=== PATIENT | male | born 1980 | race Caucasian/White ===

== ENCOUNTER 2017-07-18 10:07 | Emergency (ER) | payer OTHER ==
[2017-07-18 10:16] VITALS: BP 115/64; PULSE 68; TEMP 97; O2SAT 99
[2017-07-18 10:17] VITALS: BMI 28.4
--- NOTE | 2017-07-18 11:32 | ED PDOC ---
HPI: Male Pain Time Seen by Provider: 07/18/17 10:46 Chief Complaint (Nursing): Male Genitourinary Chief Complaint (Provider): Groin pain History Per: Patient History/Exam Limitations: no limitations Onset/Duration Of Symptoms: Days (3) Additional Complaint(s): Pt reports burning in groin area X 3 days, associated with urinary hesitancy and low back pain. Denies fever, nausea, vomiting, hematuria, frequency, constipation, diarrhea. Past Medical History Reviewed: Nursing Documentation, Vital Signs Vital Signs: Last Vital Signs Temp 97 F L 07/18/17 10:15 Pulse 68 07/18/17 10:15 Resp BP 115/64 07/18/17 10:15 Pulse Ox 99 07/18/17 10:15 - Medical History PMH: No Chronic Diseases - Surgical History Surgical History: No Surg Hx - Family History Family History: States: Unknown Family Hx - Social History Current smoker - smoking cessation education provided: No Alcohol: None - Home Medications Home Medications: Ambulatory Orders Medication Instructions Recorded Albuterol HFA [Ventolin HFA 90 1 puff IH ASDIR #1 unit 07/26/15 mcg/actuation (8 g)] Ibuprofen [Motrin] 600 mg PO Q6 PRN #15 tab 07/26/15 Oseltamivir Phosphate [Tamiflu] 75 mg PO BID #10 tab 07/26/15 Ibuprofen [Motrin] 600 mg PO Q6H PRN #20 tab 07/18/17 - Allergies Allergies/Adverse Reactions: Allergies Allergy/AdvReac Type Severity Reaction Status Date / Time No Known Allergies Allergy Verified 09/27/14 11:53 Review of Systems Constitutional: Negative for: Fever, Chills Cardiovascular: Negative for: Chest Pain, Palpitations Respiratory: Negative for: Cough, Shortness of Breath Gastrointestinal: Negative for: Nausea, Vomiting, Abdominal Pain, Diarrhea Genitourinary Male: Positive for: Dysuria, Penile Pain. Negative for: Frequency , Incontinence, Hematuria, Penile Discharge, Scrotal Pain, Rash Musculoskeletal: Positive for: Back Pain. Negative for: Neck Pain Skin: Negative for: Rash, Lesions Neurological: Negative for: Headache Physical Exam - Reviewed Nursing Documentation Reviewed: Yes Vital Signs Reviewed: Yes - Physical Exam Appears: Positive for: Well, No Acute Distress Head Exam: Positive for: ATRAUMATIC, NORMAL INSPECTION Skin: Positive for: Normal Color, Warm, Dry Eye Exam: Positive for: Normal appearance, EOMI, PERRL Cardiovascular/Chest: Positive for: Regular Rate, Rhythm Respiratory: Positive for: Normal Breath Sounds Gastrointestinal/Abdominal: Positive for: Normal Exam, Bowel Sounds, Soft. Negative for: Tenderness Extremity: Positive for: Normal ROM Neurologic/Psych: Positive for: Alert, Oriented. Negative for: Motor/Sensory Deficits - Laboratory Results Result Diagrams: 07/18/17 11:30 07/18/17 11:30 - ECG O2 Sat by Pulse Oximetry: 99 Medical Decision Making Medical Decision Makin yo male with groin pain, dysuria and hesitance. - labs - testicular ultrasound - CT abd/pelvis - IVF - Toradol Accession No. : [id number] Patient Name / ID : GEORGE DE SANTIAGO / [id number] Exam Date : 07/18/2017 12:00:19 ( Approved ) Study Comment : Sex / Age : M / 37Y Creator : Heath Juarez MD Dictator : Heath Juarez MD Meat Cutter : Church Worker : Heath Juarez MD Approver2 : Report Date : 07/18/2017 12:53:53 My Comment : HISTORY: Groin pain TECHNIQUE: Realtime sonography through the scrotum with color and doppler flow. COMPARISON: None Available. FINDINGS: RIGHT TESTICLE: Measures 4.8 x 2.3 x 2.6 cm. Normal echotexture and flow. RIGHT EPIDIDYMIS: Epididymal head measures 1.3 x 1.1 x 0.9 cm. Grossly unremarkable appearance with normal flow. LEFT TESTICLE: Measures 4.6 x 2.1 x 2.4 cm. Normal echotexture and flow. LEFT EPIDIDYMIS: Epididymal head measures 1.0 x 1.0 x 1.2 cm. Grossly unremarkable appearance with normal flow. HYDROCELE: Trace bilateral hydroceles noted. VARICOCELE: Borderline left varicocele. OTHER FINDINGS: None. IMPRESSION: No ultrasound evidence of testicular torsion or cyst or solid mass bilaterally. Trace bilateral hydroceles identified. Borderline left varicocele. Accession No. : [id number] Patient Name / ID : GEORGE DE SANTIAGO / [id number] Exam Date : 07/18/2017 12:37:52 ( Approved ) Study Comment : Sex / Age : M / 37Y Creator : Heath Juarez MD Dictator : Heath Juarez MD Meat Cutter : Church Worker : Heath Juarez MD Approver2 : Report Date : 07/18/2017 13:14:27 My Comment : PROCEDURE: CT Abdomen and Pelvis without intravenous contrast HISTORY: Low back pain, dysuria COMPARISON: None. TECHNIQUE: Helical CT of the abdomen and pelvis was performed without oral or intravenous contrast as per referring physician request. Contrast Dose: None Radiation dose: Total exam DLP = 725.85 mGy-cm. This CT exam was performed using one or more of the following dose reduction techniques: Automated exposure control, adjustment of the mA and/or kV according to patient size, and/or use of iterative reconstruction technique. FINDINGS: LOWER THORAX: Limited bilateral basilar dependent atelectasis identified. KIDNEYS AND URETERS: No radiodense urolithiasis, obstructive uropathy or perinephric reaction is appreciated bilaterally. The kidneys appear normal in size bilaterally. Ureters are unremarkable as imaged with the urinary bladder distended but thin and smooth walled. No radiodense urolithiasis identified in the urinary bladder. Further evaluation of the remaining abdominal and pelvic viscera in the abdomen and pelvis is limited due lack of contrast agents. No gross findings are appreciated involving the liver, spleen, pancreas, bilateral adrenal glands and vasculature as imaged. A mild amount of fluid and retained food distend the stomach. Limited diverticulosis seen to affect the sigmoid colon without obvious diverticulitis. No bowel obstruction, measure edema, ascites or free intraperitoneal gas is identified. No gross adenopathy. APPENDIX: Unremarkable. Normal appendix. BONES: No acute fracture. OTHER FINDINGS: None. IMPRESSION: No radiodense urolithiasis, obstructive uropathy or perinephric reaction bilaterally. Urinary bladder is distended but thin walled. Lack of contrast agents limits evaluation the remaining abdominal pelvic bursa with no definite acute findings as discussed above. Nonacute sigmoid diverticular changes appear mild. Disposition - Clinical Impression Clinical Impression: Groin pain - Disposition Referrals: FAMILY PROVIDER,NO [Primary Care Provider] - [facility] [Outside] Disposition: Routine/Home Disposition Time: 14:37 Condition: STABLE Prescriptions: Ibuprofen [Motrin] 600 mg PO Q6H PRN #20 tab PRN Reason: Pain, Moderate (4-7) Instructions: Acute Pelvic Pain Forms: [facility] (Pashto) Print Language: VENEZUELAN
[2017-07-18] MEDS ORDERED: Sodium Chloride 0.9% 1,000 ML IV STA (11:33)
[2017-07-18 11:39] LABS: BASO # 0.1 K/uL (0.0-0.2); BASO % 0.7 % (0.0-2.0); EOS # 0.1 K/uL (0.0-0.7); EOS % 1.6 % (0.0-4.0); LYMPH # 2.4 K/uL (1.0-4.3); LYMPH % 30.8 % (20.0-40.0); MEAN CELL VOLUME 89.5 fl (80.0-94.0); MEAN CORPUSCULAR HEMOGLOBIN 30.7 pg (27.0-31.0); MEAN CORPUSCULAR HGB CONC 34.3 g/dL (33.0-37.0); MEAN PLATELET VOLUME 7.2 fl (7.2-11.7); MONO # 0.5 K/uL (0.0-0.8); NEUT # 4.6 K/uL (1.8-7.0); NEUT % 59.9 % (50.0-75.0); NRBC % 0.1 % (0.0-0.0); RBC 4.88 Mil/uL (4.40-5.90); RED CELL DISTRIBUTION WIDTH 13.2 % (11.5-14.5); WHITE BLOOD COUNT 7.7 K/uL (4.8-10.8)
[2017-07-18 11:51] LABS: ALB/GLOB RATIO 1.3 (1.0-2.1); ALBUMIN 4.5 g/dL (3.5-5.0); ALT/SGPT 46 U/L (21-72); AST/SGOT 29 U/L (17-59); BLOOD UREA NITROGEN 22 mg/dl (9-20); CALCIUM 9.6 mg/dL (8.4-10.2); GFR AFRICAN-AMERICAN > 60; GFR NON-AFRICAN AMERICAN > 60
[2017-07-18 12:04] LABS: URINE AMORPHOUS SEDIMENT RARE /ul (<OCC); URINE BILIRUBIN NEGATIVE (NEGATIVE); URINE BLOOD SMALL (NEGATIVE); URINE CLARITY CLEAR (Clear); URINE COLOR YELLOW (YELLOW); URINE GLUCOSE (UA) 50 mg/dL (Normal); URINE LEUKOCYTE ESTERASE NEG Leu/uL (Negative); URINE NITRATE NEGATIVE (NEGATIVE); URINE PROTEIN NEGATIVE (NEGATIVE); URINE UROBILINOGEN 0.2-1.0 mg/dL (0.2-1.0)
--- NOTE | 2017-07-18 12:55 | US ---
HISTORY: Groin pain TECHNIQUE: Realtime sonography through the scrotum with color and doppler flow. COMPARISON: None Available. FINDINGS: RIGHT TESTICLE: Measures 4.8 x 2.3 x 2.6 cm. Normal echotexture and flow. RIGHT EPIDIDYMIS: Epididymal head measures 1.3 x 1.1 x 0.9 cm. Grossly unremarkable appearance with normal flow. LEFT TESTICLE: Measures 4.6 x 2.1 x 2.4 cm. Normal echotexture and flow. LEFT EPIDIDYMIS: Epididymal head measures 1.0 x 1.0 x 1.2 cm. Grossly unremarkable appearance with normal flow. HYDROCELE: Trace bilateral hydroceles noted. VARICOCELE: Borderline left varicocele. OTHER FINDINGS: None. IMPRESSION: No ultrasound evidence of testicular torsion or cyst or solid mass bilaterally. Trace bilateral hydroceles identified. Borderline left varicocele.
--- NOTE | 2017-07-18 13:15 | CT ---
PROCEDURE: CT Abdomen and Pelvis without intravenous contrast HISTORY: Low back pain, dysuria COMPARISON: None. TECHNIQUE: Helical CT of the abdomen and pelvis was performed without oral or intravenous contrast as per referring physician request. Contrast Dose: None Radiation dose: Total exam DLP = 725.85 mGy-cm. This CT exam was performed using one or more of the following dose reduction techniques: Automated exposure control, adjustment of the mA and/or kV according to patient size, and/or use of iterative reconstruction technique. FINDINGS: LOWER THORAX: Limited bilateral basilar dependent atelectasis identified. KIDNEYS AND URETERS: No radiodense urolithiasis, obstructive uropathy or perinephric reaction is appreciated bilaterally. The kidneys appear normal in size bilaterally. Ureters are unremarkable as imaged with the urinary bladder distended but thin and smooth walled. No radiodense urolithiasis identified in the urinary bladder. Further evaluation of the remaining abdominal and pelvic viscera in the abdomen and pelvis is limited due lack of contrast agents. No gross findings are appreciated involving the liver, spleen, pancreas, bilateral adrenal glands and vasculature as imaged. A mild amount of fluid and retained food distend the stomach. Limited diverticulosis seen to affect the sigmoid colon without obvious diverticulitis. No bowel obstruction, measure edema, ascites or free intraperitoneal gas is identified. No gross adenopathy. APPENDIX: Unremarkable. Normal appendix. BONES: No acute fracture. OTHER FINDINGS: None. IMPRESSION: No radiodense urolithiasis, obstructive uropathy or perinephric reaction bilaterally. Urinary bladder is distended but thin walled. Lack of contrast agents limits evaluation the remaining abdominal pelvic bursa with no definite acute findings as discussed above. Nonacute sigmoid diverticular changes appear mild.
[2017-07-18] MEDS ORDERED: cefTRIAXone (Rocephin) 250 mg Inj IM STA (13:57)
[2017-07-18] MEDS ORDERED: cefTRIAXone (Rocephin) 250 mg Inj ONE (14:07)
== END 2017-07-18 16:10 | disposition home or self-care (01) ==
LOC: SUPCPDRO 10:07 → H.ER 10:07
DX: N43.3 Hydrocele, unspecified (principal); I86.1 Scrotal varices
CPT/HCPCS: 74176; 80053; 81003; 85025; 93975; 96372; 96374; 99285; J0696; J1885; J7040